=== PATIENT | male | born 1950 | race Caucasian/White ===

== ENCOUNTER 2024-10-25 09:05 | Inpatient (IN) | payer MEDICARE, OTHER ==
[~2024-10-25] VITALS: Ht 180.3 cm; Wt 83.9 kg
[2024-10-25 09:42] LABS: BASOPHILS % (AUTO) 0.2 % (0.0-2.0); DIFFERENTIAL COMMENT 0; EOSINOPHILS # (AUTO) 0.2 K/uL (0.0-0.7); EOSINOPHILS % (AUTO) 3.1 % (0.0-7.0); HEMATOCRIT 38.5 % (36.7-47.1); HEMOGLOBIN 12.6 g/dL (12.5-16.3); MEAN CORPUSCULAR HEMOGLOBIN 28.9 uug (23.8-33.4); MEAN CORPUSCULAR HGB CONC 33 g/dL (32.5-36.3); MONOCYTES # (AUTO) 0.4 K/uL (0.1-1.30); MONOCYTES % (AUTO) 7.6 % (0.0-11.0); NEUTROPHILS # (AUTO) 3.8 K/uL (1.8-8.9); NEUTROPHILS % (AUTO) 70.1 % (38.5-71.5); PLATELET COUNT (AUTO) 160 K/uL (152-348); RED BLOOD CELL COUNT(AUTO) 4.37 MIL/uL (4.06-5.63); RED CELL DISTRIBUTION WIDTH 16.1 % (12.1-16.2); WHITE BLOOD COUNT (AUTO) 5.5 K/uL (3.6-10.2)
[2024-10-25] MEDS ORDERED: LORA0.5T48 PO (09:44)
[2024-10-25] MEDS ORDERED: AMLO-212 PO (09:44)
[2024-10-25] MEDS ORDERED: UBID200C18 PO (09:44)
[2024-10-25] MEDS ORDERED: QUET50TA24 PO (09:44)
[2024-10-25] MEDS ORDERED: ROSU20TA32 PO (09:44)
[2024-10-25] MEDS ORDERED: ESCI5TAB16 PO (09:44)
[2024-10-25] MEDS ORDERED: RIVA1PAT12 TP (09:44)
[2024-10-25] MEDS ORDERED: OMEG1CAP74 PO (09:44)
[2024-10-25] MEDS ORDERED: TRAZ-252 PO (09:44)
[2024-10-25] MEDS ORDERED: ASPI-1420 PO (09:44)
[2024-10-25] MEDS ORDERED: METO25CA PO (09:44)
[2024-10-25] MEDS ORDERED: MEMA10TA56 PO (09:44)
[2024-10-25] MEDS ORDERED: QUET25TA36 PO (09:44)
[2024-10-25 09:49] LABS: CARBON DIOXIDE 28 mmol/L (21-32); CHLORIDE 101 mmol/L (98-107); CREATININE 1.2 mg/dL (0.6-1.3); GLUCOSE 134 mg/dL (74-106); SODIUM SERUM 137 mmol/L (136-145); UREA NITROGEN, BLOOD 23 mg/dL (7-18)
[2024-10-25 09:52] LABS: POTASSIUM 4.4 mmol/L (3.5-5.1)
[2024-10-25 11:40] LABS: *BILIRUBIN,URIN NEGATIVE (NEGATIVE); *BLOOD, URINE NEGATIVE (NEGATIVE); *CLARITY,URINE CLEAR (CLEAR); *COLOR,URINE YELLOW (YELLOW); *KETONES,URINE NEGATIVE (NEGATIVE); *PROTEIN,URINE NEGATIVE (NEGATIVE); *UROBILINOGEN,URINE 0.2 E.U./dl (NORMAL); LEUKOCYTE ESTERASE ,URINE NEGATIVE (NEGATIVE); NITRITE, URINE NEGATIVE (NEGATIVE); UGLUCOSE NEGATIVE (NEGATIVE)
[2024-10-25] MEDS ORDERED: METO-356 PO (13:25)
[2024-10-25] MEDS ORDERED: LORAZEPAM 0.5 MG TABLET PO PRN (14:15)
[2024-10-25] MEDS ORDERED: ONDANSETRON 4 MG/2 ML VIAL IV PRN (14:15)
[2024-10-25] MEDS ORDERED: ACETAMINOPHEN 325 MG TABLET PO PRN (14:15)
[2024-10-25 14:37] VITALS: BP 129/60; TEMP 97.9; O2SAT 96
[2024-10-25] MEDS: AMLODIPINE 5 MG TABLET PO SCH (14:41)
[2024-10-25 15:57] LABS: CREATINE KINASE, TOTAL 95 U/L (39-308)
[2024-10-25] MEDS: MEMANTINE HCL 10 MG TABLET PO SCH (17:00)
[2024-10-25] MEDS: QUETIAPINE FUMARATE 25 MG TABLET PO SCH (17:01)
[2024-10-25 19:25] VITALS: BP 140/62; TEMP 98.2; O2SAT 98
[2024-10-25] MEDS ORDERED: DOCUSATE SODIUM 250 MG CAPSULE PO SCH (21:00)
[2024-10-25] MEDS: TRAZODONE 50 MG TABLET PO SCH (22:30)
[2024-10-25] MEDS: DOCUSATE SODIUM 100 MG CAPSULE PO SCH (22:31)
[2024-10-25] MEDS: ATORVASTATIN 40 MG TABLET PO SCH (22:31)
[2024-10-26 05:32] VITALS: BP 138/65; TEMP 98.1; O2SAT 98
[2024-10-26] MEDS: PANTOPRAZOLE SODIUM 40 MG TABLET.DR PO SCH (06:36)
[2024-10-26 07:17] LABS: BASOPHILS % (AUTO) 0.3 % (0.0-2.0); EOSINOPHILS # (AUTO) 0.2 K/uL (0.0-0.7); EOSINOPHILS % (AUTO) 3.8 % (0.0-7.0); HEMATOCRIT 38.5 % (36.7-47.1); HEMOGLOBIN 13.2 g/dL (12.5-16.3); LYMPHOCYTES # (AUTO) 1.2 K/uL (0.8-4.8); LYMPHOCYTES % (AUTO) 22.5 % (20.5-51.5); MEAN CORPUSCULAR HEMOGLOBIN 29.5 uug (23.8-33.4); MEAN CORPUSCULAR HGB CONC 34 g/dL (32.5-36.3); MEAN CORPUSCULAR VOLUME 85.8 fL (73.0-96.2); MONOCYTES # (AUTO) 0.6 K/uL (0.1-1.30); MONOCYTES % (AUTO) 11.1 % (0.0-11.0); NEUTROPHILS # (AUTO) 3.4 K/uL (1.8-8.9); NEUTROPHILS % (AUTO) 62.3 % (38.5-71.5); PLATELET COUNT (AUTO) 176 K/uL (152-348); RED BLOOD CELL COUNT(AUTO) 4.48 MIL/uL (4.06-5.63); RED CELL DISTRIBUTION WIDTH 15.8 % (12.1-16.2); WHITE BLOOD COUNT (AUTO) 5.5 K/uL (3.6-10.2)
[2024-10-26 07:43] LABS: THYROID STIMULATING HORMONE 3.357 mIU/mL (0.358-3.740)
[2024-10-26 07:48] LABS: DIFFERENTIAL COMMENT 1
[2024-10-26 08:00] LABS: ALANINE AMINOTRANSFERASE 15 U/L (16-63); ALBUMIN 3.3 g/dL (3.4-5.0); ALKALINE PHOSPHATASE 94 U/L (50-136); ASPARTATE AMINOTRANSFERASE 15 U/L (15-37); BILIRUBIN,TOTAL 0.4 mg/dL (0.2-1.0); CALCIUM 8.9 mg/dL (8.5-10.1); CARBON DIOXIDE 28 mmol/L (21-32); CHLORIDE 100 mmol/L (98-107); CHOLESTEROL 131 mg/dL (<200); CREATININE 1.1 mg/dL (0.6-1.3); GLUCOSE 79 mg/dL (74-106); HDL CHOLESTEROL 46 mg/dL (40-60); MAGNESIUM 2.1 mg/dL (1.8-2.4); PHOSPHOROUS 3.3 mg/dL (2.5-4.9); SODIUM SERUM 136 mmol/L (136-145); TOTAL PROTEIN, SERUM 6.9 g/dL (6.4-8.2); TRIGLYCERIDES 84 MG/DL (30-150); UREA NITROGEN, BLOOD 19 mg/dL (7-18)
[2024-10-26 08:36] LABS: IRON, SERUM 49 ug/dL (50-175)
[2024-10-26] MEDS ORDERED: Medication Not On Formulary EA (Omega-3 Fatty Acids/Fish Oil (Fish Oil 1,000 Mg Softgel) PO SCH (09:00)
[2024-10-26] MEDS ORDERED: Medication Not On Formulary EA (Escitalopram Oxalate 5 MG) PO SCH (09:00)
[2024-10-26] MEDS: OMEGA-3 FATTY ACIDS/FISH OIL CAPSULE PO SCH (09:07)
[2024-10-26] MEDS: ESCITALOPRAM OXALATE 10 MG TABLET PO SCH (09:07)
[2024-10-26] MEDS: METOPROLOL SUCCINATE XL 25 MG TAB.SR.24H PO SCH (09:08)
[2024-10-26 11:30] VITALS: BP 127/32; O2SAT 96
== END 2024-10-26 10:05 | disposition left against medical advice (07) | DRG 913 ==
LOC: ER 09:05 → MEDSURG3 12:35
PROVIDERS: ADMIT Internal Medicine; ATTEND Internal Medicine
DX: S09.92XA Unspecified injury of nose, initial encounter (principal); G93.41 Metabolic encephalopathy; F03.C4 Unspecified dementia, severe, with anxiety; D68.59 Other primary thrombophilia; I67.89 Other cerebrovascular disease; G93.49 Other encephalopathy; R53.1 Weakness; I25.10 Atherosclerotic heart disease of native coronary artery without angina pectoris; E78.5 Hyperlipidemia, unspecified; W18.30XA Fall on same level, unspecified, initial encounter; Y93.9 Activity, unspecified; Y92.099 Unspecified place in other non-institutional residence as the place of occurrence of the external cause; F03.C0 Unspecified dementia, severe, without behavioral disturbance, psychotic disturbance, mood disturbance, and anxiety; R04.0 Epistaxis; F32.A Depression, unspecified; R26.81 Unsteadiness on feet; Z95.1 Presence of aortocoronary bypass graft; Z53.29 Procedure and treatment not carried out because of patient's decision for other reasons; I12.9 Hypertensive chronic kidney disease with stage 1 through stage 4 chronic kidney disease, or unspecified chronic kidney disease; N18.9 Chronic kidney disease, unspecified; Z79.82 Long term (current) use of aspirin; Z87.891 Personal history of nicotine dependence; Z74.09 Other reduced mobility; R79.89 Other specified abnormal findings of blood chemistry; R00.1 Bradycardia, unspecified
CPT/HCPCS: 36415; 70450; 70486; 71045; 83550; 83735; 84100; 84443; 84484; 85025; A4663; G0378